=== PATIENT | female | born 1940 | race Caucasian/White ===

== ENCOUNTER 2016-12-24 21:21 | Emergency (ER) | payer MEDICARE, BC ==
[2016-12-24] MEDS ORDERED: ONDANSETRON HCL/PF 2 MG/ML VIAL IV ONE (22:06)
[2016-12-24] MEDS ORDERED: NORMAL SALINE 1,000 ML IV ONE ×2 (22:06→22:40)
[2016-12-24] MEDS ORDERED: ACETAMINOPHEN 325 MG TABLET PO ONE (22:06)
--- NOTE | 2016-12-24 22:12 | ERNOTE ---
Medical Problem HPI - General Chief Complaint: Nausea/Vomiting Source: patient Exam Limitations: no limitations - Immun/Allergies/Home Medications Immunizations: IMMUNIZATION HX Immunizations Up to Date Yes History of Influenza Vaccine No Hx Pneumococcal Vaccination Yes Allergies/Adverse Reactions: Allergies No Known Allergies Allergy (Verified 12/24/16 22:03) Home Medications: HOME MEDICATIONS Fluticasone/Salmeterol [Advair 250-50 Diskus] 1 each IH BID 11/10/12 [Last Taken 01/25/14] Lisinopril [Zestril] 20 mg PO DAILY 11/10/12 [Last Taken 01/25/14] amLODIPine BESYLATE [Norvasc (Amlodipine)] 5 mg PO DAILY 11/10/12 [Last Taken 20:00] Albuterol Sulfate [Ventolin Hfa] 2 puff IH Q4H PRN 12/06/14 [Last Taken Unknown] - History of Present History Narrative: Here for progressive shortness of breath which became worse today. she also feels nauseated and vomited twice today. Has a history of COPD Review of Systems - Review of Systems Constitutional: Present: no symptoms reported EYE: Present: no symptoms reported ENT: Present: no symptoms reported Respiratory: Present: See HPI Cardiology: Present: no symptoms reported Gastrointestinal/Abdominal: Present: See HPI - Patient's Past Medical History Patient History - Medical: Arthritis, GERD Patient History - Cardiac/Respiratory: Asthma, COPD, Hypertension Patient History - Surgical Procedures: Colonoscopy, Hysterectomy, T & A Patient History - Other: None LMP (females 10-50): Menopausal - Social History Living Situations: home Abuse History: No History of abuse Psych History: No pertinent hx Alcohol Use: none Drug Use: none - Immunizations Immunizations Up to Date: Yes Hx Pneumococcal Vaccination: Yes History of Influenza Vaccine: No Physical Exam - Physical Exam General Appearance: Present: wd/wn, alert, no apparent distress Ears, Nose, Throat: Present: normal ENT inspection, normal pharynx Neck: Present: normal inspection, nontender, supple Respiratory: Present: no respiratory distress, lungs clear - pt does have decreased breath sounds at both bases ED Progress - Results and Orders Patient's Lab Results:: I have reviewed the patient's lab results. - Vital Signs Patient's Vital Signs:: I have reviewed the patient's vital signs. Vital Signs: Vital Signs 12/24/16 21:59 Temperature 38.1 C H Pulse Rate 92 Respiratory 20 Rate Blood Pressure 169/60 O2 Sat by Pulse 94 Oximetry - X-Ray X-Ray #1 X-Ray: chest - no obvous pneumonia noted. - Progress/Reassessment Chief Complaint: Nausea/Vomiting Plan - Plan Plan: This patient's lactic acid was slightly elevated however no site of infection was found and after IV hydration pt felt great and wanted to go home. Will discharge pt home in stable condition with Dx. of COPD. repeat Lactate is 2.0 and pt is feeling well and wants to go home. Case discussed with midlevel hospitalist Departure - Departure Clinical Impression: COPD (chronic obstructive pulmonary disease) Qualifiers: COPD type: unspecified COPD Qualified Code(s): J44.9 - Chronic obstructive pulmonary disease, unspecified Disposition: Home self-care Condition: Good Instructions: Chronic Obstructive Pulmonary Disease Exacerbation, [id number] Referrals: Navjot Bryant MD [Primary Care Provider] -
[2016-12-24] MEDS ORDERED: ACETAMINOPHEN 325 MG TABLET ONE (22:17)
[2016-12-24] MEDS ORDERED: ONDANSETRON HCL/PF 2 MG/ML VIAL ONE (22:17)
[2016-12-24 22:19] LABS: Hematocrit 42.2 % (37.0-47.0); Hemoglobin 14.2 gm/dL (12.5-16.0); Mean Cell Volume 86.8 fl (78-100); Mean Corpuscular Hemoglobin 29.2 pg (27-31); Mean Corpuscular Hgb Conc 33.6 g/dl (32-36); Mean Platelet Volume 10.2 fl (6.0-9.5); Neutrophil # 9.4 K/mm3 (1.3-6.0); Neutrophil % 87.1 % (42-75.0); Platelet Count 164 K/mm3 (150-450); Red Blood Count 4.86 M/mm3 (4.2-5.4); Red Cell Distribution Width 13.7 % (11.5-14.0); White Blood Count 10.8 K/mm3 (4.0-10.5)
--- OUTSIDE RECORDS SUMMARY | 2016-12-24 22:33 | XMS REPORT | Continuity of Care Document ---
:1940 Author Organization [facility] ([facility]) Address [address] [place] [address] Phone [phone] Care Team Providers Name Role Phone Unavailable Primary Care Provider Unavailable Source Comments This disclosure is being made pursuant to the Care Everywhere program, applicable federal and state laws, and may not contain all informaitonavailable regarding this patient.[facility] ([facility]) Active Allergies and Adverse Reactions Not on File Current Medications Not on file Active Problems Not on file Social History Tobacco Use Types Packs/Day Years Used Date Never Assessed Plan of Care Health Maintenance Due Date Last Done Comments Hepatitis B Vaccine (1 of 3 - Primary Series) 1940 Tdap Vaccine 1951 Lipid Disorder Screening 1958 Td Vaccine 1958 Mammogram 1980 Colonoscopy 1990 Zoster Vaccine 2000 Osteoporosis Screening (DXA Bone Density) 2005 Pneumococcal Vaccine (1 of 2 - PCV13) 2005 Influenza Vaccine: Seasonal (#1) 03/12/2016 Results from Last 3 Months Not on file
[2016-12-24 22:42] LABS: Albumin * 3.7 gm/dl (3.4-5.0); Anion Gap 11.5 mmol/L (6.8-13.8); BUN/Creatinine Ratio 22.2 (9.0-21.6); Bilirubin, Total 0.6 mg/dL (0.0-1.1); Ca. Corrected For Albumin 8.6 mg/dL (8.4-10.2); Calcium * 8.7 mg/dL (7.9-10.9); Carbon Dioxide 32.3 mmol/L (24-32.6); Potassium 3.8 mmol/L (3.4-4.6); Total Protein 6.7 gm/dL (6.2-8.2)
[2016-12-24] MEDS: NORMAL SALINE 1,000 ML IV PRN ×2 (22:59→23:36)
[2016-12-24 23:29] LABS: Urine Appearance Clear; Urine Bacteria TRACE; Urine Bilirubin Negative (NEGATIVE); Urine Blood Negative /ul (NEGATIVE); Urine Color Pale Yellow; Urine Ketone Negative (NEGATIVE); Urine Nitrite Negative (NEGATIVE); Urine Protein Negative (NEGATIVE); Urine RBC None Seen /hpf (0-5); Urine Specific Gravity 1.015 SP.GR. (1.005-1.010); Urine Urobilinogen Normal (NORMAL); Urine WBC None Seen /hpf (0-5)
[2016-12-25] MEDS ORDERED: ALBUTEROL SULFATE/IPRATROPIUM 3 ML NEBU IH ONE ×2 (00:20→00:26)
[2016-12-25 03:42] VITALS: BP 112/48
== END 2016-12-25 03:27 | disposition home or self-care (01) ==
LOC: ER 21:21
DX: J44.9 Chronic obstructive pulmonary disease, unspecified (principal); I10 Essential (primary) hypertension

== ENCOUNTER 2017-03-31 20:59 | Observation (INO) | payer MEDICARE, BC ==
[2017-03-31] MEDS ORDERED: ONDANSETRON HCL/PF 2 MG/ML VIAL IV ONE (21:35)
[2017-03-31] MEDS ORDERED: ASPIRIN 81 MG TAB.CHEW PO ONE (21:35)
--- NOTE | 2017-03-31 21:39 | ERNOTE ---
Medical Problem HPI - Narrative Date of Service: 03/31/17 - General Chief Complaint: Nausea/Vomiting Time Seen by Provider: 03/31/17 21:25 Source: patient - Immun/Allergies/Home Medications Immunizations: IMMUNIZATION HX Immunizations Up to Date Yes History of Influenza Vaccine No Hx Pneumococcal Vaccination Yes Allergies/Adverse Reactions: Allergies No Known Allergies Allergy (Verified 03/31/17 21:28) Home Medications: HOME MEDICATIONS Fluticasone/Salmeterol [Advair 250-50 Diskus] 1 each IH BID 11/10/12 [Last Taken 01/25/14] Lisinopril [Zestril] 20 mg PO DAILY 11/10/12 [Last Taken 01/25/14] amLODIPine BESYLATE [Norvasc (Amlodipine)] 5 mg PO DAILY 11/10/12 [Last Taken 20:00] Albuterol Sulfate [Ventolin Hfa] 2 puff IH Q4H PRN 12/06/14 [Last Taken Unknown] - History of Present History Narrative: This is a 76-year-old female who comes to the emergency department complaining of chest/abdominal fullness, nausea, vomiting, diarrhea. The patient has a history of COPD. She denies significant history of cardiac disease. She comes in saying that she ate a baked potato for dinner this evening. She says it made her feel much full her that should normally have done. He says that she sat there she felt even rosario. She thought she was going to be sick so she went into the bathroom. When she got in the bathroom she actually had diarrhea. It was nonbloody watery diarrhea. She continued to feel nauseated. She decided to come to the hospital. When she got here she initially didn't throw up. She also had another episode of diarrhea. She has also noted that she is becoming profoundly dyspneic with even mild exertion while she's here. The patient says that her discomfort in her chest/abdomen is really in the epigastric area. She says it feels full. He feels better after vomiting. She has no diaphoresis. No leg swelling. No radiation down her arms or into her neck or jaw. No radiation to the back. She has never had similar symptoms in the past. No recent sick contacts. Review of Systems - Review of Systems Constitutional: Present: no symptoms reported EYE: Present: no symptoms reported ENT: Present: no symptoms reported Respiratory: Present: shortness of breath Cardiology: Present: no symptoms reported Gastrointestinal/Abdominal: Present: nausea, vomiting, diarrhea Genitourinary: Present: no symptoms reported Musculoskeletal: Present: no symptoms reported Skin: Present: no symptoms reported Neurological: Present: no symptoms reported Endocrine: Present: no symptoms reported Hematologic/Lymphatic: Present: no symptoms reported Psych: Present: no symptoms reported All Other Systems: All systems neg except as marked - Patient's Past Medical History Patient History - Medical: Arthritis, GERD Patient History - Cardiac/Respiratory: Asthma, COPD, Hypertension Patient History - Cancer: No Hx of Cancer Patient History - Surgical Procedures: Colonoscopy, Hysterectomy, T & A Patient History - Other: None LMP (females 10-50): post - Social History Living Situations: home Abuse History: No History of abuse Psych History: No pertinent hx Smoking Status: Former smoker Alcohol Use: occasionally Drug Use: none - Immunizations Immunizations Up to Date: Yes Hx Pneumococcal Vaccination: Yes History of Influenza Vaccine: No Physical Exam - Physical Exam General Appearance: Present: wd/wn, alert, other - well-developed well- nourished pleasant woman sitting in bed. She does get profoundly dyspneic after speaking with me even for a short period of time. Head Exam: Present: normal inspection, no evidence of injury Eye Exam: Normal inspection: bilateral, PERRL: bilateral, EOMI: bilateral Ears, Nose, Throat: Present: normal ENT inspection, normal pharynx Neck: Present: normal inspection, nontender Respiratory: Present: no respiratory distress, no accessory muscle use, chest nontender, lungs clear Cardiovascular/Chest: Present: regular rate, rhythm, no murmur, normal peripheral pulses Gastrointestinal/Abdominal: Present: normal bowel sounds, nontender, nondistended, soft, other - normal bowel sounds. No definite masses. No rebound or guarding. Rectal exam is deferred. Back Exam: Present: normal inspection, normal range of motion, no CVA tenderness Extremity Exam: Present: normal inspection, non-tender, normal range of motion Neurological Exam: Present: oriented, normal mood/affect, no motor/sensory deficits Skin Exam: Present: normal color, warm/dry Lymphatic Exam: Present: no adenopathy ED Progress - Results and Orders Patient's Lab Results:: I have reviewed the patient's lab results. - Vital Signs Patient's Vital Signs:: I have reviewed the patient's vital signs. Vital Signs: Vital Signs 03/31/17 21:10 Temperature 37.1 C Pulse Rate 16 L Respiratory 18 Rate Blood Pressure 161/125 O2 Sat by Pulse 90 Oximetry - EKG EKG: NSR, other EKG read: Interp. by me EKG Comments: Normal sinus rhythm at 96 normal axis normal intervals some artifact makes comprehensive evaluation of fine details difficult. No definite ST segment elevation however possible ST segment depression in V4 5 and 6. - CT/Ultrasound CT/Ultrasound Narrative: CAT scan of the chest for PE does not demonstrated acute pulmonary embolism. There is thickening of interim lobar septa scattered groundglass opacities consistent with mild pulmonary edema. - Progress/Reassessment Chief Complaint: Nausea/Vomiting Progress:: Improved Progress Note-Subjective: 04/01/17 01:23 The patient has no further nausea or vomiting. She is still having the significant dyspnea on exertion which has been quite concerned however. 04/01/17 01:44 The patient had an arterial blood gas performed which demonstrates a pH of 7.406 PCO2 of 28 with a PaO2 of 57 this is on room air. This is significant hypoxia. She is left on room air in the room for several minutes. Her saturation is between 86 and 90%. Any exertion or extended talking will cause this to drop I cannot in good conscience allow a 76-year-old with no history of oxygen requiring COPD to go home when she is so profoundly hypoxic. I discussed the case with Dr. coronado and she has graciously agreed to accept the patient. I will give a dose of corticosteroids as well as antibiotic, a quinolone antibiotic, which have been shown to decrease the rate of 3 hospitalization in people with COPD requiring hospitalization. Departure - Departure Clinical Impression: COPD (chronic obstructive pulmonary disease) Disposition: [facility] Condition: Stable Referrals: Navjot Bryant MD [Primary Care Provider] - - Critical Care Total Time (mins): 30
[2017-03-31] MEDS ORDERED: ASPIRIN 81 MG TAB.CHEW ONE (21:51)
[2017-03-31] MEDS ORDERED: ONDANSETRON HCL/PF 2 MG/ML VIAL ONE (21:51)
[2017-03-31 21:52] LABS: Hematocrit 47.2 % (37.0-47.0); Hemoglobin 15.8 gm/dL (12.5-16.0); Mean Cell Volume 88.1 fl (78-100); Mean Corpuscular Hemoglobin 29.5 pg (27-31); Mean Corpuscular Hgb Conc 33.5 g/dl (32-36); Mean Platelet Volume 10.3 fl (6.0-9.5); Neutrophil # 9.1 K/mm3 (1.3-6.0); Neutrophil % 88.8 % (42-75.0); Platelet Count 190 K/mm3 (150-450); Red Blood Count 5.36 M/mm3 (4.2-5.4); Red Cell Distribution Width 13.8 % (11.5-14.0); White Blood Count 10.3 K/mm3 (4.0-10.5)
[2017-03-31 22:12] LABS: ALT 26 U/L (19-67); AST 15 U/L (0-48); Albumin * 3.8 gm/dl (3.4-5.0); Alkaline Phosphatase * 78 U/L (50-170); Anion Gap 14.4 mmol/L (6.8-13.8); BNP * 75 pg/mL (5-550); BUN/Creatinine Ratio 24.6 (9.0-21.6); Bilirubin, Total 0.5 mg/dL (0.0-1.1); Blood Urea Nitrogen 17 mg/dL (3-23); Ca. Corrected For Albumin 8.6 mg/dL (8.4-10.2); Calcium * 8.8 mg/dL (7.9-10.9); Carbon Dioxide 28.3 mmol/L (24-32.6); Chloride 106 mmol/L (97-106); Glucose * 131 mg/dL (70-110); Potassium 3.7 mmol/L (3.4-4.6); Sodium 145 mmol/L (132-142); Total Protein 6.8 gm/dL (6.2-8.2); Troponin I Less than 0.017 ng/ml (0.00-0.10)
[2017-04-01] MEDS ORDERED: NORMAL SALINE 1,000 ML IV ONE (00:13)
[2017-04-01 00:47] LABS: Urine Bilirubin Negative (NEGATIVE); Urine Blood Negative /ul (NEGATIVE); Urine Ketone Negative (NEGATIVE); Urine Nitrite Negative (NEGATIVE); Urine Protein Negative (NEGATIVE); Urine Specific Gravity 1.015 SP.GR. (1.005-1.010); Urine Urobilinogen Normal (NORMAL)
[2017-04-01 00:48] LABS: Urine Appearance Clear; Urine Bacteria TRACE; Urine Color Yellow; Urine RBC None Seen /hpf (0-5); Urine WBC None Seen /hpf (0-5)
[2017-04-01] MEDS ORDERED: ALBUTEROL SULFATE/IPRATROPIUM 3 ML NEBU IH ONE (01:11)
[2017-04-01] MEDS ORDERED: METHYLPREDNISOLONE SOD SUCC/PF 125 MG/2 ML VIAL IV ONE (01:41)
[2017-04-01] MEDS ORDERED: METHYLPREDNISOLONE SOD SUCC/PF 125 MG/2 ML VIAL ONE (01:45)
[2017-04-01] MEDS ORDERED: LEVOFLOXACIN/D5W 500 MG/100 ML BAG IV SCH (01:45)
[2017-04-01] MEDS ORDERED: LEVOFLOXACIN 500 MG TABLET PO ONE (01:46)
[2017-04-01] MEDS ORDERED: LEVOFLOXACIN 500 MG TABLET ONE (01:47)
[2017-04-01] MEDS ORDERED: ALBUTEROL SULFATE/IPRATROPIUM 3 ML NEBU IH PRN (02:35)
[2017-04-01] MEDS ORDERED: BUDESONIDE 0.5 MG/2 ML VIAL.NEB IH SCH ×2 (02:45→07:00)
[2017-04-01] MEDS ORDERED: ALBUTEROL SULFATE 200 PUFF INHALER IH PRN (03:12)
[2017-04-01] MEDS: PANTOPRAZOLE SODIUM 40 MG TABLET.EC PO SCH ×2 (04:13→07:23)
--- NOTE | 2017-04-01 04:45 | HP ---
Chief Complaint - Chief Complaint Date of Service: 04/01/17 Time of Service: 03:03 Chief Complaint: Shortness of breath, nausea History of Present Illness: 76 years old female adm to the hospital from ER with reports of shortness of breath, nausea and vomiting that began today after mowing her grass. Pt stated she was at home and was just not feeling well. If she walked a short distant she would get short of breath. Per relative she had similar s/s a few months ago and was seen in the ER. While in ER Spo2 86% while at rest on RA, she was given neb treatment, IV steroids and s/s improved. PMH significant for COPD, hypertension and obesity. Plan to adm for COPD exacerbation. Plan of care discussed with pt and family they verbalized understanding and agrees. - Patient's Past Medical History Patient History - Medical: Arthritis, GERD Patient History - Cardiac/Respiratory: Asthma, COPD, Hypertension Patient History - Cancer: No Hx of Cancer Patient History - Surgical Procedures: Colonoscopy, Hysterectomy, T & A Patient History - Other: None LMP (females 10-50): post - Social History Living Situations: alone Abuse History: No History of abuse Psych History: No pertinent hx Does anyone smoke in the home?: No Smoking Status: Former smoker Have you smoked in the past 12 months: No Do you dip or chew tobacco: No Alcohol Use: occasionally Drug Use: none - Immunizations Immunizations Up to Date: Yes Hx Pneumococcal Vaccination: Yes History of Influenza Vaccine: No Review Of Systems (GEN) - Review of Systems Generalized/Overall Review: Present: No Symptoms Reported EENTM: Present: No Symptoms Reported Respiratory: Present: Cough, Shortness of Breath Cardiac: Present: No Symptoms Reported Abdominal: Present: Nausea Genitourinary: Present: No Symptoms Reported Musculoskeletal: Present: No Symptoms Reported Neurological: Present: No Symptoms Reported Skin: Present: No Symptoms Reported Endocrine: Present: No Symptoms Reported Allergies/Adverse Reactions: Allergies Allergy/AdvReac Type Severity Reaction Status Date / Time No Known Allergies Allergy Verified 03/31/17 21:28 Home Medications: HOME MEDICATIONS Fluticasone/Salmeterol [Advair 250-50 Diskus] 1 each IH BID 11/10/12 [Last Taken 03/31/17 08:00] Lisinopril [Zestril] 20 mg PO DAILY 11/10/12 [Last Taken 03/31/17 08:00] amLODIPine BESYLATE [Norvasc (Amlodipine)] 5 mg PO DAILY 11/10/12 [Last Taken 08:00] Albuterol Sulfate [Ventolin Hfa] 2 puff IH Q4H PRN 12/06/14 [Last Taken Unknown] Exam - Exam Vital Signs: Vital Signs - Last Taken Temp 36.7 C 04/01/17 02:23 Pulse 109 H 04/01/17 02:23 Resp 20 04/01/17 02:23 BP 139/72 04/01/17 02:23 Pulse Ox 92 04/01/17 02:23 Constitutional: Present: Alert, Oriented x3, Cooperative, Well developed, No distress, Middle aged ENT Exam: Present: normal ENT inspection Eye Exam: bilateral eye: normal inspection Neck: Present: full range of motion Back Exam: Present: normal inspection Breasts: Present: Exam deferred Respiratory: Present: chest non-tender, wheezing Cardiovascular/Chest: Present: normal peripheral pulses, no chest tenderness, tachycardia Peripheral Pulses: dorsalis-pedis (R): 3+, dorsalis-pedis (L): 3+ Abdomen: Present: Normal bowel sounds, soft, nontender, nondistended /Rectal: Present: Exam deferred Extremity: Present: normal range of motion, leg pain Skin Exam: Present: normal color, warm/dry, no cyanosis Neurologic: Present: alert, normal mood/affect, oriented x 3 Appearance: Present: appropriate appearance Eye contact: Present: cooperative, good eye contact Thoughts: Present: normal thought pattern Diagnostic Studies: Laboratory Results WBC 10.3 K/mm3 (4.0-10.5) 03/31/17 21:45 RBC 5.36 M/mm3 (4.2-5.4) 03/31/17 21:45 Hgb 15.8 gm/dL (12.5-16.0) 03/31/17 21:45 Hct 47.2 % (37.0-47.0) H 03/31/17 21:45 MCV 88.1 fl (78-100) 03/31/17 21:45 MCH 29.5 pg (27-31) 03/31/17 21:45 MCHC 33.5 g/dl (32-36) 03/31/17 21:45 RDW 13.8 % (11.5-14.0) 03/31/17 21:45 Plt Count 190 K/mm3 (150-450) 03/31/17 21:45 MPV 10.3 fl (6.0-9.5) H 03/31/17 21:45 Immature Gran % (Auto) 0.30 % (0.001-0.429) 03/31/17 21:45 Immature Gran # (Auto) 0.03 K/mm3 (0.000-0.0310) 03/31/17 21:45 Neutrophils % 88.8 % (42-75.0) H 03/31/17 21:45 Lymphocytes % 9.9 % (20-51) L 03/31/17 21:45 Monocytes % 0.3 % (0.0-9) 03/31/17 21:45 Eosinophils % 0.5 % (0.0-3.0) 03/31/17 21:45 Basophils % 0.2 % (0.0-1.0) 03/31/17 21:45 Nucleated RBC % 0.0 k/mm3 (0-1) 03/31/17 21:45 Neutrophils # 9.1 K/mm3 (1.3-6.0) H 03/31/17 21:45 Lymphocytes # 1.0 k/mm3 (1.5-3.5) L 03/31/17 21:45 Monocytes # 0.0 k/mm3 (0.0-1.0) 03/31/17 21:45 Eosinophils # 0.1 k/mm3 (0.0-0.7) 03/31/17 21:45 Absolute Basophils 0.0 k/mm3 (0.0-0.1) 03/31/17 21:45 D-Dimer 0.91 mg/L (0.19-0.49) H 03/31/17 21:45 pCO2 36.7 mmHg (32.0-45.0) 04/01/17 01:25 pO2 52.0 mmHg (83.0-108.0) L 04/01/17 01:25 HCO3 22.7 mmol/L (21.0-28.0) 04/01/17 01:25 Total CO2 23.8 mmol/L (19.0-24.0) 04/01/17 01:25 Base Excess -1.5 mmol/L (-2.0-3.0) 04/01/17 01:25 ABG pH 7.41 (7.35-7.45) 04/01/17 01:25 ABG O2 Sat (Measured) 87.4 % (94.0-98.0) L 04/01/17 01:25 Sodium 145 mmol/L (132-142) H 03/31/17 21:45 Plasma Sodium 145 mmol/L (130-142) H 03/31/17 21:45 Potassium 3.7 mmol/L (3.4-4.6) 03/31/17 21:45 Chloride 106 mmol/L (97-106) 03/31/17 21:45 Carbon Dioxide 28.3 mmol/L (24-32.6) 03/31/17 21:45 Anion Gap 14.4 mmol/L (6.8-13.8) H 03/31/17 21:45 BUN 17 mg/dL (3-23) 03/31/17 21:45 Creatinine 0.69 mg/dL (0.4-1.4) 03/31/17 21:45 Est GFR (Non-Af Amer) 88 mL/min (60-130) 03/31/17 21:45 BUN/Creatinine Ratio 24.6 (9.0-21.6) H 03/31/17 21:45 Random Glucose 131 mg/dL (70-110) H 03/31/17 21:45 Calcium 8.8 mg/dL (7.9-10.9) 03/31/17 21:45 Calcium Adj for Albumin 8.6 mg/dL (8.4-10.2) 03/31/17 21:45 Total Bilirubin 0.5 mg/dL (0.0-1.1) 03/31/17 21:45 AST 15 U/L (0-48) 03/31/17 21:45 ALT 26 U/L (19-67) 03/31/17 21:45 Alkaline Phosphatase 78 U/L (50-170) 03/31/17 21:45 Troponin I Less than 0.017 ng/ml (0.00-0.10) 03/31/17 23:45 B-Natriuretic Peptide 75 pg/mL (5-550) 03/31/17 21:45 Total Protein 6.8 gm/dL (6.2-8.2) 03/31/17 21:45 Albumin 3.8 gm/dl (3.4-5.0) 03/31/17 21:45 Urine Color Yellow 04/01/17 00:30 Urine Appearance Clear 04/01/17 00:30 Urine pH 6.0 pH (5.0-7.0) 04/01/17 00:30 Ur Specific [place] 1.015 SP.GR. (1.005-1.010) 04/01/17 00:30 Urine Protein Negative mg/dL (NEGATIVE) 04/01/17 00:30 Urine Glucose (UA) Negative mg/dL (NEGATIVE) 04/01/17 00:30 Urine Ketones Negative mg/dL (NEGATIVE) 04/01/17 00:30 Urine Blood Negative /ul (NEGATIVE) 04/01/17 00:30 Urine Nitrate Negative (NEGATIVE) 04/01/17 00:30 Urine Bilirubin Negative mg/dl (NEGATIVE) 04/01/17 00:30 Urine Urobilinogen Normal EU/dl (NORMAL) 04/01/17 00:30 Ur Leukocyte Esterase Negative /ul (NEGATIVE) 04/01/17 00:30 Urine RBC None seen /hpf (0-5) 04/01/17 00:30 Urine WBC None seen /hpf (0-5) 04/01/17 00:30 Ur Epithelial Cells 0-5 /hpf (0-5) 04/01/17 00:30 Urine Bacteria Trace (NONE) 04/01/17 00:30 Urine Culture Comments No culture indicated 04/01/17 00:30 CXR: No acute cardiopulmonary abnormality Assessment/Plan - Narrative Narrative: COPD exacerbation likely due to mowing grass Neb treatment, supplemented oxygen and encourage use of I/S Levaquin and solumedrol given in ER CXR; No acute cardiopulmonary process R/O PE: CTA chest pending Hypertension- stable Resume home medication Monitor VS Q shift and as indicated GERD- Stable Protonix DVT ppx: ambulate GI ppx: Protonix Code status: Full code Time 35 minutes - Assessment/Plan (1) COPD (chronic obstructive pulmonary disease) Problem: Acute (2) Hypertension Problem: Chronic Qualifiers: Hypertension type: essential hypertension Qualified Code(s): I10 - Essential (primary) hypertension (3) GERD (gastroesophageal reflux disease) Problem: Chronic
[2017-04-01 06:07] LABS: Anion Gap 12.6 mmol/L (6.8-13.8); Carbon Dioxide 25.3 mmol/L (24-32.6); Estimated Creat Clear 56.7; Potassium 3.9 mmol/L (3.4-4.6)
[2017-04-01] MEDS ORDERED: ALBUTEROL SULFATE 2.5 MG/3 ML VIAL.NEB IH PRN (06:30)
[2017-04-01] MEDS ORDERED: FLUTICASONE/SALMETEROL 14 PUFF DISK.W.DEV IH SCH (07:00)
[2017-04-01] MEDS ORDERED: METHYLPREDNISOLONE SOD SUCC 60 MG in WATER FOR INJ.,BACTERIOSTATIC 0 ML IV SCH ×2 (07:00→08:00)
[2017-04-01] MEDS ORDERED: METHYLPREDNISOLONE SOD SUCC/PF 125 MG/2 ML VIAL IV SCH (08:00)
[2017-04-01] MEDS ORDERED: amLODIPine BESYLATE 5 MG TABLET PO SCH (09:00)
[2017-04-01] MEDS ORDERED: LISINOPRIL 20 MG TABLET PO SCH (09:00)
[2017-04-01 10:57] VITALS: BP 115/56
[2017-04-01] MEDS ORDERED: predniSONE 20 MG TABLET PO ONE (12:31)
--- NOTE | 2017-04-01 12:32 | DS ---
(1) COPD exacerbation Problem: Acute (2) Obesity Diagnosis(s): BMI-31.0 Problem: Chronic Qualifiers: Obesity type: due to excess calories Obesity classification: unspecified obesity classification Description of Stay: DATE OF ADMISSION: 04/01/17. DATE OF DISCHARGE: 04/01/17. DIAGNOSTICS: CTA : 04/01/17. DISCHARGE SUMMARY: Joana Hernandez is a 76-year-old WF with a H/O HTN, COPD who came in to the ER for evaluation of sob, difficulty in breathing, N,V,D which started later in the evening. She had mowed 2 acres of lawn on a ride on lawnmower and had a baked potato for supper prior to this. She had sats of 86% on RA, d-dimer 0.91. ABG's RA: PH 7.41, PCO2 36.7, PO2 52, sat 87.7%. Troponin, EKG, CBC and CMP were unremarkable. BNP 75. Patient underwent a CXR: Centrilobular emphysema at the bases, chronic scarring , diffuse hyperinflation with flattening of the diaphragm, calcific granulomas, DJD of the spine and shoulders. No acute cardiopulmonary abnormality identified. She underwent a CTA on 04/01/2017: Which showed no evidence of PE, small bilateral pleural effusions and edematous changes to the lung parenchyma, chronic granulomatous changes, foci of groundglass attenuation in the bilateral lower lobes which is likely atelectasis however Navjot evolving infection could not be ruled out. Some fatty infiltration of liver present RT renal cyst present. Minimal nodular contour to the liver which can be seen in cirrhosis. Patient was treated with Solu-Medrol 125 mg IV, nebulizer treatments IH and levofloxacin 500 mg IV with improvement in symptoms. Patient was ambulated, sats remained at 91-92% RA. Patient is being discharged in a stable condition. More than 30 min spent in counseling, discussing treatment options, prognosis, preparing discharge papers, dictating discharge summary. Procedures Performed: none Results and Findings: Laboratory Tests 03/31/17 21:45 WBC 10.3 Hgb 15.8 Hct 47.2 H Plt Count 190 03/31/17 04/01/17 21:45 05:40 Plasma Sodium 145 H 143 H Potassium 3.7 3.9 Chloride 106 108 H Carbon Dioxide 28.3 25.3 BUN 17 15 Creatinine 0.69 0.79 Est GFR (Non-Af Amer) 88 75 Random Glucose 131 H 176 H D Calcium Adj for Albumin 8.6 Total Bilirubin 0.5 AST 15 ALT 26 Alkaline Phosphatase 78 Total Protein 6.8 Albumin 3.8 Laboratory Tests 03/31/17 03/31/17 21:45 23:45 D-Dimer 0.91 H Troponin I < 0.017 < 0.017 B-Natriuretic Peptide 75 Discharge Disposition: Home self care Disposition: Home self-care Condition: Stable Discharge Activity: Activity as tolerated Discharge Diet: Low salt, Low fat/chol, High Fiber Referrals: Navjot Bryant MD [Primary Care Provider] - Problem Oriented Discharge Instructions to Patient/Family: Hypoxemia Additional Patient Instructions (free text): NEW/CHANGED MEDICATIONS: Vitamin D3 2000 units daily with food [OTC medication for bones etc.] [Cheaper in a bottle of 100]. Amlodipine 5 mg has been changed to bedtime. please follow low salt diet. Appointment with PCP in 10-14 days Prescriptions (Any new or edited meds): amLODIPine BESYLATE [Norvasc] 5 mg PO DAILY@2100 #0.1 tablet Cholecalciferol (Vitamin D3) [Vitamin D] 2,000 unit PO DAILY #100 capsule predniSONE [Deltasone] 20 mg PO DAILY #6 tablet Complete Home Medications List: Complete Home Medication List: Fluticasone/Salmeterol [Advair 250-50 Diskus] 1 each IH BID 11/10/12 Lisinopril [Zestril] 20 mg PO DAILY 11/10/12 Albuterol Sulfate [Ventolin Hfa] 2 puff IH Q4H PRN 12/06/14 Cholecalciferol (Vitamin D3) [Vitamin D] 2,000 unit PO DAILY #100 capsule amLODIPine BESYLATE [Norvasc] 5 mg PO DAILY@2100 #0.1 tablet 04/01/17 predniSONE [Deltasone] 20 mg PO DAILY #6 tablet 04/01/17
[2017-04-02] MEDS ORDERED: LEVOFLOXACIN/D5W 500 MG/100 ML BAG IV SCH
== END 2017-04-01 15:38 | disposition home or self-care (01) ==
LOC: ER 20:59 → MS 04-01 01:52 → INTOOBSV 04-01 01:52
PROVIDERS: ADMIT Nurse Practitioner; ATTEND Family Medicine
PROC: 4A033R1 Measurement of Arterial Saturation, Peripheral, Percutaneous Approach (ICD-10-PCS; principal; 2017-03-31)
DX: J44.1 Chronic obstructive pulmonary disease with (acute) exacerbation (principal); J45.901 Unspecified asthma with (acute) exacerbation; Z87.891 Personal history of nicotine dependence; E66.9 Obesity, unspecified; Z68.31 Body mass index [BMI] 31.0-31.9, adult; K21.9 Gastro-esophageal reflux disease without esophagitis; I10 Essential (primary) hypertension
CPT/HCPCS: 36415; 36600; 71020; 71275; 80048; 80053; 81001; 82803; 83880; 84484; 85025; 85379; 93005; 96374; 96375; 99291; G0378; J2405

== ENCOUNTER 2018-11-06 08:15 | Observation (INO) ==
[2018-11-06] MEDS ORDERED: ALBUTEROL SULFATE 2.5 MG/0.5 ML VIAL.NEB IH ONE (08:40)
[2018-11-06] MEDS ORDERED: ACETAMINOPHEN 325 MG TABLET PO ONE (08:40)
[2018-11-06 08:46] LABS: Hematocrit 42.1 % (37.0-47.0); Hemoglobin 13.9 gm/dL (12.5-16.0); Mean Cell Volume 88.6 fl (78-100); Mean Corpuscular Hemoglobin 29.3 pg (27-31); Mean Platelet Volume 10.7 fl (8-12.5); Neutrophil # 8.5 K/mm3 (1.3-6.0); Neutrophil % 78.2 % (42-75.0); Platelet Count 156 K/mm3 (150-450); Red Blood Count 4.75 M/mm3 (4.2-5.4); Red Cell Distribution Width 13.2 % (11.5-14.0); White Blood Count 10.8 K/mm3 (4.0-10.5)
--- NOTE | 2018-11-06 08:46 | ERNOTE ---
Dyspnea - General Presenting Symptoms: shortness of breath Time Seen by Provider: 11/06/18 08:34 Source: patient Exam Limitations: no limitations - Immun/Allergies/Home Medications Immunizations: IMMUNIZATION HX Immunizations Up to Date Yes History of Influenza Vaccine No Hx Pneumococcal Vaccination No Allergies/Adverse Reactions: Allergies ranitidine [From Zantac] Allergy (Verified 11/06/18 08:31) Itching Home Medications: HOME MEDICATIONS Albuterol Sulfate [Ventolin Hfa] 2 puff IH Q4H PRN 12/06/14 [Last Taken Unknown] Polyethylene Glycol 3350 See Rx Instructions PO PRN 03/15/18 [Last Taken Unknown] amlodipine 5 mg tablet 5 mg PO DAILY #90 tab 06/09/18 [Last Taken Unknown] fluticasone 250 mcg-salmeterol 50 mcg/dose blistr powdr for inhalation 1 inh IH BID 06/09/18 [Last Taken Unknown] lisinopril 40 mg tablet 40 mg PO DAILY #90 tab 06/09/18 [Last Taken Unknown] - History of Present Illness Narrative: Patient was seen in the ER four days ago and tested positive for influenza A. She had symptoms for three days at that time and was treated symptomatically. She reports that she is still running a fever and has been increasingly short of breath with exertion, cough is somewhat better, no chest pain. 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 Denies: out of meds Frequency of episodes: Reports: occassional episodes Modifying Factors - (Improves): Reports: rest Modifying Factors (Worsens): Reports: activity Associated Symptoms-Dyspnea: Reports: fever/chills. Denies: chest pain/dis comfort Prior Treatment: Reports: recently seen. Denies: currently on antibiotics Review of Systems - Review of Systems Constitutional: Present: fever, malaise EYE: Absent: vision changes ENT: Absent: nose congestion, sore throat Respiratory: Present: See HPI, shortness of breath, cough Cardiology: Absent: chest pain Gastrointestinal/Abdominal: Absent: nausea, vomiting, abdominal pain Genitourinary: Present: no symptoms reported Musculoskeletal: Absent: back pain Skin: Absent: rash Neurological: Absent: headache Medical History (Last Reviewed 11/06/18 @ 10:45 by Desiree Hackett MD) Essential hypertension (Chronic) Onset Date: Unknown monitor BP at home and bring in a log of BP at her next visit. Hyperlipidemia (Chronic) Onset Date: Unknown GERD (gastroesophageal reflux disease) (Chronic) Onset Date: 12/01/13 COPD (chronic obstructive pulmonary disease) (Chronic) Onset Date: 04/08/17 Asthma (Chronic) Onset Date: Unknown Surgical History: Surgical History (Last Reviewed 11/06/18 @ 10:45 by Desiree Hackett MD) History of foot surgery Onset Date: 03/23/13 History of tonsillectomy Onset Date: Unknown History of total abdominal hysterectomy Onset Date: ~1974 Normal colonoscopy Onset Date: 12/14/14 2006: normal 2014 scattered diverticulosis. Tubular adenoma. Family History: Family History (Last Reviewed 11/06/18 @ 08:32 by Lina Edge RN) Mother , in her 70's Colon cancer Father , 40's Drowned Sister , 74 Colon cancer Other Bipolar disorder Social History: Preferred Language Macedonian Smoking Status Former smoker Abuse History No History of abuse Psych History No pertinent hx Alcohol Use occasionally Drug Use none (Last Updated 07/08/18 @ 12:31 by Felipe Lang DO) No Social History Section defined Physical Exam - Physical Exam General Appearance: Present: wd/wn, alert, no apparent distress Head Exam: Present: normal inspection Eye Exam: Normal inspection: bilateral Ears, Nose, Throat: Present: normal pharynx Respiratory: Present: no respiratory distress, no accessory muscle use, rhonchi - lef lower lung. Absent: respiratory distress Cardiovascular/Chest: Present: regular rate, rhythm, no murmur Gastrointestinal/Abdominal: Present: normal bowel sounds, nontender, soft Extremity Exam: Present: no edema Neurological Exam: Present: alert, oriented, normal mood/affect Skin Exam: Present: normal color, warm/dry Progress - Results and Orders Patient's Lab Results:: I have reviewed the patient's lab results. - Vital Signs Patient's Vital Signs:: I have reviewed the patient's vital signs. Vital Signs: Vital Signs 11/06/18 08:27 11/06/18 08:32 Temperature 38.1 C H Pulse Rate 86 86 Respiratory Rate 19 Blood Pressure 156/87 H O2 Sat by Pulse Oximetry 91 L - EKG EKG #1 EKG: NSR, nonspecific ST T wave changes, unchanged from 03/2017 EKG read: Interp. by me - X-Ray X-Ray #1 X-Ray: chest - New, multifocal opacities, see report Interpretation: Reviewed by me - Progress/Reassessment Chief Complaint: Dyspnea Progress Note-Subjective: 11/06/18 09:58 discussed test result, patient O2sat dipping to 88% at rest, currently 94 % on 1 liter PSI 68 11/06/18 10:[address] Sheffield (Dr Lang out of [facility]) okay to admit for observation for pneumonia and start zithromax and rocephin Departure Clinical Impression: Pneumonia Qualifiers: Pneumonia type: due to unspecified organism Laterality: unspecified laterality Lung location: unspecified part of lung Qualified Code(s): J18.9 - Pneumonia, unspecified organism - Departure Disposition: Still a patient Condition: Stable
[2018-11-06 09:06] LABS: Albumin * 3.3 gm/dl (3.4-5.0); Anion Gap 12.6 mmol/L (6.8-13.8); Bilirubin, Total 1.3 mg/dL (0.0-1.1); Ca. Corrected For Albumin 8.8 mg/dL (8.4-10.2); Calcium * 8.6 mg/dL (7.9-10.9); Carbon Dioxide 27.9 mmol/L (24-32.6); Potassium 3.5 mmol/L (3.4-4.6); Total Protein 6.6 gm/dL (6.2-8.2)
[2018-11-06] MEDS ORDERED: cefTRIAXone SODIUM 1,000 MG/100 ML BAG IV ONE (10:09)
[2018-11-06] MEDS ORDERED: ACETAMINOPHEN 325 MG TABLET PO PRN (10:14)
[2018-11-06] MEDS ORDERED: AZITHROMYCIN 250 MG TABLET PO STA (10:14)
[2018-11-06] MEDS ORDERED: POLYETHYLENE GLYCOL 3350 17 GM PACKET PO PRN (12:33)
[2018-11-06] MEDS ORDERED: ALBUTEROL SULFATE 2.5 MG/0.5 ML VIAL.NEB IH PRN (12:33)
--- NOTE | 2018-11-06 12:37 | HP ---
Chief Complaint - Chief Complaint Date of Service: 11/06/18 Time of Service: 12:13 Chief Complaint: shortness of breath History of Present Illness: Mary Bernard is a 78 year old white female , patient of Dr. Lang, with PMH of COPD. Hypertension, Hyperlipidemia who was admitted on 11/06/2018 with the chief complaint of increasing SOB. 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 Her SOB got worst and 4 days she went to the ED and was found to be positive for Influenza A. She was just treated symptomatically as her symptoms were already 3 days old. She continued to have increasing SOB despite her inhalers ( she has no nebulizers) still associated with fever and so she went to our ED and she was found to have a multifocal infiltrate with leukocytosis. She was then admitted for further evaluation and treatment. Medical History (Last Reviewed 11/06/18 @ 11:15 by Nalini Figueroa RN) Essential hypertension (Chronic) Onset Date: Unknown monitor BP at home and bring in a log of BP at her next visit. Hyperlipidemia (Chronic) Onset Date: Unknown GERD (gastroesophageal reflux disease) (Chronic) Onset Date: 12/01/13 COPD (chronic obstructive pulmonary disease) (Chronic) Onset Date: 04/08/17 Asthma (Chronic) Onset Date: Unknown Surgical History: Surgical History (Last Reviewed 11/06/18 @ 11:15 by Nalini Figueroa RN) History of foot surgery Onset Date: 03/23/13 History of tonsillectomy Onset Date: Unknown History of total abdominal hysterectomy Onset Date: ~1974 Normal colonoscopy Onset Date: 12/14/14 2006: normal 2014 scattered diverticulosis. Tubular adenoma. Family History: Family History (Last Reviewed 11/06/18 @ 11:16 by Nalini Figueroa RN) Mother , in her 70's No problems noted. Father , 40's Drowned Sister , 74 Colon cancer Social History: Patient Lives/Resources Home Utilized Occupation retired Preferred Language Anguillan Do you have any alevism or Yes: Religious cultural preference? Smoking Status Former smoker Have you smoked in the past 12 No months Abuse History No History of abuse Psych History No pertinent hx Alcohol Use occasionally Drug Use none (Last Updated 07/08/18 @ 12:31 by Felipe Sirucek, DO) No Social History Section defined Review Of Systems (GEN) - Review of Systems Generalized/Overall Review: Present: Weakness, Fever. Absent: Chills EENTM: Absent: Blurred Vision Respiratory: Present: Cough, Shortness of Breath, Wheezing Cardiac: Absent: Chest Pain, Edema, Palpitations Abdominal: Absent: Nausea, Vomiting Genitourinary: Absent: Urgency, Frequency Musculoskeletal: Absent: Joint Pain Neurological: Absent: Headache Skin: Absent: Lesions, Rash Endocrine: Absent: Intolerance to Cold, Intolerance to Heat, Excessive Sweating Immunizations: IMMUNIZATION HX Immunizations Up to Date Yes History of Influenza Vaccine No Hx Pneumococcal Vaccination No Allergies/Adverse Reactions: Allergies Allergy/AdvReac Type Severity Reaction Status Date / Time ranitidine [From Zantac] Allergy Itching Verified 11/06/18 11:17 Home Medications: HOME MEDICATIONS Albuterol Sulfate [Ventolin Hfa] 2 puff IH Q4H PRN 12/06/14 [Last Taken Unknown] Polyethylene Glycol 3350 1 tsp PO DAILY PRN 03/15/18 [Last Taken Unknown] amlodipine 5 mg tablet 5 mg PO DAILY #90 tab 06/09/18 [Last Taken Unknown] fluticasone 250 mcg-salmeterol 50 mcg/dose blistr powdr for inhalation 1 inh IH BID 06/09/18 [Last Taken Unknown] lisinopril 40 mg tablet 40 mg PO DAILY #90 tab 06/09/18 [Last Taken Unknown] Exam - Exam Vital Signs: Vital Signs - Last Taken Temp 37.0 C 11/06/18 11:20 Pulse 82 11/06/18 11:20 Resp 18 11/06/18 11:20 BP 134/51 11/06/18 11:20 Pulse Ox 94 11/06/18 11:20 Constitutional: Present: Alert, Oriented x3, Cooperative ENT Exam: Present: hearing grossly normal Eye Exam: bilateral eye: normal inspection, PERRL, EOMI Neck: Present: supple Respiratory: Present: decreased breath sounds, crackles, wheezing Cardiovascular/Chest: Present: regular rate, rhythm, no JVD, no murmur Abdomen: Present: Normal bowel sounds, soft, nontender, nondistended Extremity: Present: no pedal edema, no calf tenderness Diagnostic Studies: Abnormal Lab Results 11/06/18 11/06/18 Range/Units 08:35 08:35 WBC 10.8 H (4.0-10.5) K/mm3 Neutrophils % 78.2 H (42-75.0) % Lymphocytes % 12.5 L (20-51) % Neutrophils # 8.5 H (1.3-6.0) K/mm3 Lymphocytes # 1.35 L (1.5-3.5) k/mm3 Random Glucose 131 H (70-110) mg/dL Total Bilirubin 1.3 H (0.0-1.1) mg/dL ALT 18 L (19-67) U/L Albumin 3.3 L (3.4-5.0) gm/dl Laboratory Results WBC 10.8 K/mm3 (4.0-10.5) H 11/06/18 08:35 RBC 4.75 M/mm3 (4.2-5.4) 11/06/18 08:35 Hgb 13.9 gm/dL (12.5-16.0) 11/06/18 08:35 Hct 42.1 % (37.0-47.0) 11/06/18 08:35 MCV 88.6 fl (78-100) 11/06/18 08:35 MCH 29.3 pg (27-31) 11/06/18 08:35 MCHC 33.0 g/dl (32-36) 11/06/18 08:35 RDW 13.2 % (11.5-14.0) 11/06/18 08:35 Plt Count 156 K/mm3 (150-450) 11/06/18 08:35 MPV 10.7 fl (8-12.5) 11/06/18 08:35 Immature Gran % (Auto) 0.30 % (0.001-0.429) 11/06/18 08:35 Immature Gran # (Auto) 0.03 K/mm3 (0.000-0.0310) 11/06/18 08:35 Neutrophils % 78.2 % (42-75.0) H 11/06/18 08:35 Lymphocytes % 12.5 % (20-51) L 11/06/18 08:35 Monocytes % 6.1 % (0.0-9) 11/06/18 08:35 Eosinophils % 2.7 % (0.0-3.0) 11/06/18 08:35 Basophils % 0.2 % (0.0-1.0) 11/06/18 08:35 Nucleated RBC % 0.0 k/mm3 (0-1) 11/06/18 08:35 Neutrophils # 8.5 K/mm3 (1.3-6.0) H 11/06/18 08:35 Lymphocytes # 1.35 k/mm3 (1.5-3.5) L 11/06/18 08:35 Monocytes # 0.7 k/mm3 (0.0-1.0) 11/06/18 08:35 Eosinophils # 0.3 k/mm3 (0.0-0.7) 11/06/18 08:35 Absolute Basophils 0.0 k/mm3 (0.0-0.1) 11/06/18 08:35 Sodium 139 mmol/L (132-142) 11/06/18 08:35 Plasma Sodium 139 mmol/L (130-142) 11/06/18 08:35 Potassium 3.5 mmol/L (3.4-4.6) 11/06/18 08:35 Chloride 102 mmol/L (97-106) 11/06/18 08:35 Carbon Dioxide 27.9 mmol/L (24-32.6) 11/06/18 08:35 Anion Gap 12.6 mmol/L (6.8-13.8) 11/06/18 08:35 BUN 13 mg/dL (3-23) 11/06/18 08:35 Creatinine 0.62 mg/dL (0.4-1.4) 11/06/18 08:35 Est GFR (Non-Af Amer) 99 mL/min (60-130) 11/06/18 08:35 BUN/Creatinine Ratio 21.0 (9.0-21.6) 11/06/18 08:35 Random Glucose 131 mg/dL (70-110) H 11/06/18 08:35 Lactic Acid, Venous 0.8 mmol/L (0.4-2.0) 11/06/18 08:35 Calcium 8.6 mg/dL (7.9-10.9) 11/06/18 08:35 Calcium Adj for Albumin 8.8 mg/dL (8.4-10.2) 11/06/18 08:35 Total Bilirubin 1.3 mg/dL (0.0-1.1) H 11/06/18 08:35 AST 20 U/L (0-48) 11/06/18 08:35 ALT 18 U/L (19-67) L 11/06/18 08:35 Alkaline Phosphatase 63 U/L (50-170) 11/06/18 08:35 B-Natriuretic Peptide 236 pg/mL (5-550) 11/06/18 08:23 Total Protein 6.6 gm/dL (6.2-8.2) 11/06/18 08:35 Albumin 3.3 gm/dl (3.4-5.0) L 11/06/18 08:35 Assessment/Plan - Narrative Narrative: We will continue with her IV antibiotics and her home medications. - Assessment/Plan (1) Pneumonia Assessment: Viral vs bacterial. Even though more than 48 hours, will also start Tamiflu. continue with Rocephin and Azithromycin. Problem: Acute Qualifiers: Pneumonia type: due to unspecified organism Laterality: unspecified laterality Lung location: unspecified part of lung Qualified Code(s): J18.9 - Pneumonia, unspecified organism (2) Influenza A Problem: Acute (3) Essential hypertension Problem: Chronic (4) Hyperlipidemia Problem: Chronic (5) GERD (gastroesophageal reflux disease) Problem: Chronic (6) COPD (chronic obstructive pulmonary disease) Problem: Chronic
[2018-11-06] MEDS: OSELTAMIVIR PHOSPHATE 75 MG CAPSULE PO SCH ×2 (13:31→20:51)
[2018-11-06] MEDS: ALBUTEROL SULFATE/IPRATROPIUM 3 ML NEBU IH SCH ×3 (14:05→22:20)
[2018-11-07] MEDS: ALBUTEROL SULFATE/IPRATROPIUM 3 ML NEBU IH SCH ×3 (02:29→11:01)
[2018-11-07 05:39] LABS: Hematocrit 37.1 % (37.0-47.0); Mean Cell Volume 90.7 fl (78-100); Mean Corpuscular Hemoglobin 29.3 pg (27-31); Mean Corpuscular Hgb Conc 32.3 g/dl (32-36); Mean Platelet Volume 11.2 fl (8-12.5); Neutrophil # 6.3 K/mm3 (1.3-6.0); Neutrophil % 70.2 % (42-75.0); Platelet Count 142 K/mm3 (150-450); Red Blood Count 4.09 M/mm3 (4.2-5.4); Red Cell Distribution Width 13.3 % (11.5-14.0)
[2018-11-07 05:41] LABS: Anion Gap 11.5 mmol/L (6.8-13.8); BUN/Creatinine Ratio 15.7 (9.0-21.6); Calcium * 8.2 mg/dL (7.9-10.9); Carbon Dioxide 29.8 mmol/L (24-32.6); Potassium 3.3 mmol/L (3.4-4.6)
[2018-11-07] MEDS ORDERED: LISINOPRIL 40 MG TABLET PO SCH (09:00)
[2018-11-07] MEDS ORDERED: amLODIPine BESYLATE 5 MG TABLET PO SCH (09:00)
[2018-11-07] MEDS ORDERED: AZITHROMYCIN 250 MG TABLET PO SCH (09:00)
[2018-11-07] MEDS: OSELTAMIVIR PHOSPHATE 75 MG CAPSULE PO SCH (09:43)
--- NOTE | 2018-11-07 10:51 | DS ---
(1) Pneumonia Problem: Acute Qualifiers: Pneumonia type: due to unspecified organism Laterality: unspecified laterality Lung location: unspecified part of lung Qualified Code(s): J18.9 - Pneumonia, unspecified organism (2) Influenza A Problem: Acute (3) Essential hypertension Problem: Chronic (4) Hyperlipidemia Problem: Chronic (5) GERD (gastroesophageal reflux disease) Problem: Chronic (6) COPD (chronic obstructive pulmonary disease) Problem: Chronic Description of Stay: Mary Bernard is a 78 year old white female , patient of Dr. Lang, with PMH of COPD. Hypertension, Hyperlipidemia who was admitted on 11/06/2018 with the chief complaint of increasing SOB. 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 Her SOB got worst and 4 days she went to the ED and was found to be positive for Influenza A. She was just treated symptomatically as her symptoms were already 3 days old. She continued to have increasing SOB despite her inhalers ( she has no nebulizers) still associated with fever and so she went to our ED and she was found to have a multifocal infiltrate with leukocytosis. She was then admitted for further evaluation and treatment. She was started on breathing treatments and started on IV Rocephin and Azithromycin. Because of her multifocal infiltrates , I also started her on Tamiflu despite of her s/sx being more than 48 hours. She is feeling better and is stable to be discharged and to follow with her PCP on Saturday. Procedures Performed: none Results and Findings: Pending Mircobiology Results 11/06/18 08:50 Blood Blood Culture - Preliminary NO GROWTH 24 HOURS 11/06/18 08:35 Blood Blood Culture - Preliminary NO GROWTH 24 HOURS Lab Pending Results 11/06/18 08:23: B-Natriuretic Peptide 236 11/06/18 08:35: WBC 10.8 H, RBC 4.75, Hgb 13.9, Hct 42.1, MCV 88.6, MCH 29.3, MCHC 33.0, RDW 13.2, Plt Count 156, MPV 10.7, Immature Gran % (Auto) 0.30, Immature Gran # (Auto) 0.03, Neutrophils % 78.2 H, Lymphocytes % 12.5 L, Mon ocytes % 6.1, Eosinophils % 2.7, Basophils % 0.2, Nucleated RBC % 0.0, Neutrophils # 8.5 H, Lymphocytes # 1.35 L, Monocytes # 0.7, Eosinophils # 0.3, Absolute Basophils 0.0 11/06/18 08:35: Sodium 139, Plasma Sodium 139, Potassium 3.5, Chloride 102, Carbon Dioxide 27.9, Anion Gap 12.6, BUN 13, Creatinine 0.62, Est GFR (Non-Af Amer) 99, BUN/Creatinine Ratio 21.0, Random Glucose 131 H, Calcium 8.6, Calcium Adj for Albumin 8.8, Total Bilirubin 1.3 H, AST 20, ALT 18 L, Alkaline Phosphatase 63, Total Protein 6.6, Albumin 3.3 L 11/06/18 08:35: Lactic Acid, Venous 0.8 11/07/18 05:28: WBC 9.0, RBC 4.09 L, Hgb 12.0 L, Hct 37.1, MCV 90.7, MCH 29.3, MCHC 32.3, RDW 13.3, Plt Count 142 L, MPV 11.2, Immature Gran % (Auto) 0.20, Im mature Gran # (Auto) 0.02, Neutrophils % 70.2, Lymphocytes % 16.5 L, Monocytes % 6.7, Eosinophils % 6.2 H, Basophils % 0.2, Nucleated RBC % 0.0, Neutrophils # 6.3 H, Lymphocytes # 1.49 L, Monocytes # 0.6, Eosinophils # 0.6, Absolute Basophils 0.0 11/07/18 05:28: Sodium 138, Plasma Sodium 138, Potassium 3.3 L, Chloride 100, Carbon Dioxide 29.8, Anion Gap 11.5, BUN 11, Creatinine 0.70, Est GFR (Non-Af Amer) 86, BUN/Creatinine Ratio 15.7, Random Glucose 118 H, Calcium 8.2 Discharge Location: Home Disposition: Home self-care Condition: Stable Discharge Activity: Activity as tolerated Discharge Diet: Low salt, Low fat/chol Referrals: Feliep Lang DO [Primary Care Provider] - Additional Patient Instructions (free text): -Please make TCM appointment unless care home discharge. Thank you! Zulema @ [phone]. Follow up with er PCP on Saturday. Prescriptions (Any new or edited meds): Acetaminophen [Tylenol] 650 mg PO Q4H PRN #20 tab PRN Reason: Pain/Fever Albuterol Sulfate/Ipratropium [Duoneb 2.5-0.5MG/3ML Soln] 3 ml INHALATION QID PRN #1 nebu PRN Reason: Shortness Of Breath/Wheezing Levofloxacin [Levaquin] 500 mg PO DAILY #10 tab Oseltamivir Phosphate [Tamiflu] 75 mg PO BID #14 cap Complete Home Medications List: Complete Home Medication List: Albuterol Sulfate [Ventolin Hfa] 2 puff IH Q4H PRN 12/06/14 Polyethylene Glycol 3350 1 tsp PO DAILY PRN 03/15/18 amlodipine 5 mg tablet 5 mg PO DAILY #90 tab 06/09/18 fluticasone 250 mcg-salmeterol 50 mcg/dose blistr powdr for inhalation 1 inh IH BID 06/09/18 lisinopril 40 mg tablet 40 mg PO DAILY #90 tab 06/09/18 Acetaminophen [Tylenol] 650 mg PO Q4H PRN #20 tab 11/07/18 Albuterol Sulfate/Ipratropium [Duoneb 2.5-0.5MG/3ML Soln] 3 ml INHALATION QID PRN #1 nebu 11/07/18 Levofloxacin [Levaquin] 500 mg PO DAILY #10 tab 11/07/18 Oseltamivir Phosphate [Tamiflu] 75 mg PO BID #14 cap 11/07/18
[2018-11-07 12:56] VITALS: BP 148/62
== END 2018-11-07 12:30 | disposition home or self-care (01) ==
LOC: MS 08:15 → ER 08:15 → MS 10:45
PROVIDERS: ADMIT Internal Medicine; ATTEND Family Medicine
CPT/HCPCS: 36415; 71020; 71046; 80048; 80053; 83519; 83605; 83880; 85025; 87040; 93005; 94640; 94664; 94760; 96365; 96366; 99285; G0378

== ENCOUNTER 2021-01-05 03:15 | Inpatient (IN) ==
[2021-01-05] MEDS ORDERED: ALBUTEROL SULFATE/IPRATROPIUM 3 ML NEBU IH ONE ×3 (03:21→04:05)
--- NOTE | 2021-01-05 03:29 | ERNOTE ---
Dyspnea - General Presenting Symptoms: shortness of breath Time Seen by Provider: 01/05/21 03:19 Source: EMS Exam Limitations: clinical condition - Immun/Allergies/Home Medications Immunizations: IMMUNIZATION HX Immunizations Up to Date Yes History of Influenza Vaccine Yes Hx Pneumococcal Vaccination No Allergies/Adverse Reactions: Allergies No Known Drug Allergies Allergy (Verified 01/05/21 03:46) Home Medications: HOME MEDICATIONS Albuterol Sulfate [Ventolin Hfa] 2 puff IH Q4H PRN 12/06/14 [Last Taken Unknown] Polyethylene Glycol 3350 1 tsp PO DAILY PRN 03/15/18 [Last Taken Unknown] fluticasone 250 mcg-salmeterol 50 mcg/dose blistr powdr for inhalation 1 inh IH Q12H #60 ea 07/25/20 [Last Taken Unknown] amlodipine 5 mg tablet 5 mg PO DAILY #90 tab 09/27/20 [Last Taken Unknown] lisinopril 40 mg tablet 40 mg PO DAILY #90 tab 09/27/20 [Last Taken Unknown] - History of Present Illness Narrative: 8-year-old female brought in by EMS with history of shortness of breath starting early evening last evening. She then awoke more short of breath and called EMS. When EMS arrived at her house they found her oxygen saturations in the low 80% range and patient was somewhat cyanotic. They have oxygen 2 L per nasal cannula and started albuterol nebulized treatment. 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 Initiating event: Reports: unknown Frequency of episodes: Reports: occassional episodes Modifying Factors - (Improves): Reports: albuterol, oxygen Modifying Factors (Worsens): Reports: activity Associated Symptoms-Dyspnea: Reports: fever/chills Review of Systems - Review of Systems Constitutional: Present: See HPI, chills ENT: Absent: nose congestion, nasal drainage Respiratory: Present: See HPI Cardiology: Absent: chest pain Gastrointestinal/Abdominal: Present: nausea, vomiting Genitourinary: Absent: frequency, dysuria Musculoskeletal: Absent: back pain, muscle pain Skin: Absent: rash Neurological: Absent: headache, dizziness/light-headedness Endocrine: Absent: excessive sweating Medical History (Last Reviewed 01/05/21 @ 03:28 by Sampson Friend DO) COVID-19 vaccine series completed (Acute) COVID-19 vaccine administered (Acute) Pelvic fullness in female (Acute) Atrophic vaginitis (Acute) Essential hypertension (Chronic) Onset Date: Unknown Hyperlipidemia (Chronic) Onset Date: Unknown GERD (gastroesophageal reflux disease) (Chronic) Onset Date: 12/01/13 COPD (chronic obstructive pulmonary disease) (Chronic) Onset Date: 04/08/17 Asthma (Chronic) Onset Date: Unknown Surgical History: Surgical History (Last Reviewed 01/05/21 @ 03:28 by Sampson Friend DO) History of colonoscopy Onset Date: 12/14/14 02/19/06 Tinguely-normal. 12/14/14 Tinguely-tubular adenoma, scattered diverticulosis. Recheck 5 yrs. History of foot surgery Onset Date: 03/23/13 left ankle fx History of local excision of skin lesion Onset Date: 09/23/14 right anterior upper let-seborrheic keratosis. History of tonsillectomy Onset Date: Unknown History of total abdominal hysterectomy Onset Date: ~1974 Family History: Family History (Last Reviewed 01/05/21 @ 03:28 by Sampson Friend DO) Mother , age 70's-natural causes No problems noted. Father , age 40's Drowned Sister , age 74 Colon cancer dx age 71 Social History: (Last Reviewed 01/05/21 @ 03:28 by Sampson Friend DO) Social History: adopted: No retirement: No Marital status: / lives independently: Yes household members: none current occupational status: retired Highest level of school completed/degree received: high school graduate Sexually Active: No Tobacco: Smoking Status: Former smoker Alcohol: alcohol intake: current alcohol intake frequency: holiday/special occasion Substance Use: substance use type: does not use Dietary Habits: caffeine: Yes caffeine comment: edenilson Type: carbonated beverages Physical Exam - Physical Exam General Appearance: Present: wd/wn, mild distress, lethargic Head Exam: Present: normal inspection, no evidence of injury Eye Exam: Normal inspection: bilateral Neck: Present: normal inspection, nontender, supple Respiratory: Present: no respiratory distress, decreased breath sounds - left, wheezing - fine, right Cardiovascular/Chest: Present: no murmur, tachycardia Gastrointestinal/Abdominal: Present: nontender, nondistended, soft Extremity Exam: Present: normal inspection, normal range of motion, no edema Neurological Exam: Present: no motor/sensory deficits Skin Exam: Present: normal color, warm/dry Lymphatic Exam: Present: no adenopathy Progress - Results and Orders Patient's Lab Results:: I have reviewed the patient's lab results. - Vital Signs Patient's Vital Signs:: I have reviewed the patient's vital signs. - EKG EKG #1 EKG: supraventricular tachycardia - sinus, nonspecific ST T wave changes EKG read: Interp. by me - X-Ray X-Ray #1 X-Ray: chest Interpretation: Reviewed by me X-ray Comments: IMPRESSION: Diffuse interstitial pulmonary edema. Possible small right pleural effusion. Patchy opacities at the right upper lung and right lung base may represent asymmetric pulmonary edema or infection. Electronically signed by Nick Kyle D.O.. - CT/Ultrasound CT/Ultrasound Narrative: CTA chest. 1. Negative for PE. 2. Consolidations within the lungs bilaterally, most severe in the right upper lobe and right middle lobe. 3. Pleural effusions. - Progress/Reassessment Progress:: Improved Progress Note-Subjective: 01/05/21 07:[address] Ford she agrees with admission for pneumonia. Departure Clinical Impression: Pneumonia Qualifiers: Pneumonia type: due to unspecified organism Laterality: bilateral Lung location: unspecified part of lung Qualified Code(s): J18.9 - Pneumonia, unspecified organism - Departure Disposition: Still a patient Condition: Good
[2021-01-05] MEDS ORDERED: METHYLPREDNISOLONE SOD SUCC/PF 125 MG/2 ML VIAL IV ONE (03:55)
[2021-01-05 04:03] LABS: Hematocrit 54.4 % (37.0-47.0); Hemoglobin 18.1 gm/dL (12.5-16.0); Mean Cell Volume 89.2 fl (78-100); Mean Corpuscular Hemoglobin 29.7 pg (27-31); Mean Corpuscular Hgb Conc 33.3 g/dl (32-36); Mean Platelet Volume 10.4 fl (8-12.5); Platelet Count 204 K/mm3 (150-450); Red Cell Distribution Width 13.2 % (11.5-14.0)
[2021-01-05] MEDS ORDERED: cefTRIAXone SODIUM 1,000 MG/100 ML BAG IV ONE (04:07)
[2021-01-05 04:13] LABS: Total Cells Counted 100
[2021-01-05 04:59] LABS: ALT 15 U/L (19-67); AST 13 U/L (0-48); Albumin * 3.1 gm/dl (3.4-5.0); Alkaline Phosphatase * 75 U/L (50-170); Anion Gap 12.7 mmol/L (6.8-13.8); BNP * 82 pg/mL (5-550); BUN/Creatinine Ratio 20.4 (9.0-21.6); Bilirubin, Total 0.9 mg/dL (0.0-1.1); Blood Urea Nitrogen 20 mg/dL (3-23); Calcium * 8.6 mg/dL (7.9-10.9); Carbon Dioxide 26.1 mmol/L (24-32.6); Chloride 105 mmol/L (97-106); Glucose * 187 mg/dL (70-110); Potassium 3.8 mmol/L (3.4-4.6); Sodium 140 mmol/L (132-142); Total Protein 6.3 gm/dL (6.2-8.2); Troponin I Less than 0.017 ng/mL (0.00-0.10)
[2021-01-05] MEDS ORDERED: NORMAL SALINE 1,000 ML IV ONE ×2 (05:05→13:32)
[2021-01-05 05:07] LABS: Band 6 % (0-2.0); Eosinophil 1 % (0-3); Lymphocyte 2 % (20-51); Monocyte 1 % (0-9); Neutrophil 90 % (42-75); Neutrophil # 19.8 K/mm3 (1.3-6.0)
[2021-01-05 05:09] LABS: Ovalocytes Trace; Platelet Estimate Normal (NORMAL)
[2021-01-05] MEDS ORDERED: AZITHROMYCIN 250 MG TABLET PO ONE (07:11)
[2021-01-05] MEDS: NORMAL SALINE 1,000 ML IV SCH ×2 (07:14→08:34)
--- NOTE | 2021-01-05 08:18 | HP ---
Chief Complaint - Chief Complaint Date of Service: 01/05/21 Time of Service: 08:10 Chief Complaint: shortness of breath History of Present Illness: Patient with PMHx of COPD presented to the ED after a few hours of SOB and shaking chills. Denies chest pain, swelling, or edema. EMS reported spO2 in the low 80's and she required a non-rebreather. She had increased work of breathing initially here in the ED. Workup showed elevated WBC of 22.0, elevated neutrophils, D dimer of 2.01. ABGs showed normal pH at 7.38, but pO2 and pCO2 were both low. Lactate elevated at 3.0, and increased to 3.4 while in the ED. She was given 125 mg IV solumedrol, a dose of Rocephin and a dose of azithromycin, breathing treatments, and saline in the ED, with improvement in her respiratory status. CT chest showed " No evidence of a central PE. Multifocal opacities, concerning for multifocal pneumonia or pneumonitis superimposed upon underlying interstitial pulmonary edema. Recommend follow-up to resolution. Small right greater than left pleural effusions." She has been diagnosed with pneumonia and admitted for treatment. Medical History (Last Reviewed 01/05/21 @ 07:56 by Latisha Huynh RN) COVID-19 vaccine series completed (Acute) COVID-19 vaccine administered (Acute) Pelvic fullness in female (Acute) Atrophic vaginitis (Acute) Essential hypertension (Chronic) Onset Date: Unknown Hyperlipidemia (Chronic) Onset Date: Unknown GERD (gastroesophageal reflux disease) (Chronic) Onset Date: 12/01/13 COPD (chronic obstructive pulmonary disease) (Chronic) Onset Date: 04/08/17 Asthma (Chronic) Onset Date: Unknown Surgical History: Surgical History (Last Reviewed 01/05/21 @ 03:46 by Zulema Velasco RN) History of colonoscopy Onset Date: 12/14/14 02/19/06 Tinguely-normal. 12/14/14 Tinguely-tubular adenoma, scattered diverticulosis. Recheck 5 yrs. History of foot surgery Onset Date: 03/23/13 left ankle fx History of local excision of skin lesion Onset Date: 09/23/14 right anterior upper let-seborrheic keratosis. History of tonsillectomy Onset Date: Unknown History of total abdominal hysterectomy Onset Date: ~1974 Family History: Family History (Last Reviewed 01/05/21 @ 03:46 by Zulema Velasco RN) Mother , age 70's-natural causes No problems noted. Father , age 40's Drowned Sister , age 74 Colon cancer dx age 71 Social History: (Last Reviewed 01/05/21 @ 03:46 by Zulema Velasco RN) Social History: adopted: No halfway: No Marital status: / lives independently: Yes household members: none current occupational status: retired Highest level of school completed/degree received: high school graduate Sexually Active: No Tobacco: Smoking Status: Former smoker Alcohol: alcohol intake: current alcohol intake frequency: holiday/special occasion Substance Use: substance use type: does not use Dietary Habits: caffeine: Yes caffeine comment: [email or web address] Type: carbonated beverages Review Of Systems (GEN) - Review of Systems Generalized/Overall Review: Present: Chills, Fever Respiratory: Present: Shortness of Breath. Absent: Cough Cardiac: Absent: Chest Pain, Edema Abdominal: Present: No Symptoms Reported Genitourinary: Present: No Symptoms Reported Musculoskeletal: Present: No Symptoms Reported Immunizations: IMMUNIZATION HX Immunizations Up to Date unable to obtain Immunizations Comment Covid x2 History of Influenza Vaccine Yes Hx Pneumococcal Vaccination No Allergies/Adverse Reactions: Allergies Allergy/AdvReac Type Severity Reaction Status Date / Time No Known Drug Allergies Allergy Verified 01/05/21 03:46 Home Medications: HOME MEDICATIONS Albuterol Sulfate [Ventolin Hfa] 2 puff IH Q4H PRN 12/06/14 [Last Taken Unknown] Polyethylene Glycol 3350 1 tsp PO DAILY PRN 03/15/18 [Last Taken Unknown] fluticasone 250 mcg-salmeterol 50 mcg/dose blistr powdr for inhalation 1 inh IH Q12H #60 ea 07/25/20 [Last Taken Unknown] amlodipine 5 mg tablet 5 mg PO DAILY #90 tab 09/27/20 [Last Taken Unknown] lisinopril 40 mg tablet 40 mg PO DAILY #90 tab 09/27/20 [Last Taken Unknown] Exam - Exam Vital Signs: Vital Signs - Last Taken Temp 36.9 C 01/05/21 07:24 Pulse 99 01/05/21 07:36 Resp 28 H 01/05/21 07:36 BP 122/65 01/05/21 07:36 Pulse Ox 96 01/05/21 07:36 Constitutional: Present: Alert, No distress, Other - sitting on side of bed, Elderly Respiratory: Present: normal breath sounds, no respiratory distress, other - currently wearing 4L O2 via NC. Absent: crackles, rhonchi, wheezing Cardiovascular/Chest: Present: regular rate, rhythm Abdomen: Present: soft, nontender Extremity: Absent: lower extremity edema Eye contact: Present: cooperative, good eye contact Diagnostic Studies: Abnormal Lab Results 01/05/21 01/05/21 01/05/21 Range/Units 03:53 03:53 04:30 WBC 22.0 H (4.0-10.5) K/mm3 RBC 6.10 H (4.2-5.4) M/mm3 Hgb 18.1 H (12.5-16.0) gm/dL Hct 54.4 H (37.0-47.0) % Neutrophils % (Manual) 90 H (42-75) % Band Neuts % (Manual) 6 H (0-2.0) % Lymphocytes % (Manual) 2 L (20-51) % Neutrophils # (Manual) 19.8 H (1.3-6.0) K/mm3 Lymphocytes # (Manual) 0.4 L (1.5-3.5) k/mm3 D-Dimer 2.01 H (0.19-0.49) ugFEU/mL pCO2 (32.0-45.0) mmHg pO2 (83.0-108.0) mmHg HCO3 (21.0-28.0) mmol/L Total CO2 (19.0-24.0) mmol/L Base Excess (-2.0-3.0) mmol/L Est GFR (Non-Af Amer) 58 L D (60-130) mL/min Random Glucose 187 H (70-110) mg/dL Lactic Acid, Venous (0.4-2.0) mmol/L ALT 15 L (19-67) U/L Albumin 3.1 L (3.4-5.0) gm/dl 01/05/21 01/05/21 01/05/21 Range/Units 04:30 04:38 06:30 WBC (4.0-10.5) K/mm3 RBC (4.2-5.4) M/mm3 Hgb (12.5-16.0) gm/dL Hct (37.0-47.0) % Neutrophils % (Manual) (42-75) % Band Neuts % (Manual) (0-2.0) % Lymphocytes % (Manual) (20-51) % Neutrophils # (Manual) (1.3-6.0) K/mm3 Lymphocytes # (Manual) (1.5-3.5) k/mm3 D-Dimer (0.19-0.49) ugFEU/mL pCO2 29.9 L (32.0-45.0) mmHg pO2 76.2 L (83.0-108.0) mmHg HCO3 17.2 L (21.0-28.0) mmol/L Total CO2 18.1 L (19.0-24.0) mmol/L Base Excess -6.2 L (-2.0-3.0) mmol/L Est GFR (Non-Af Amer) (60-130) mL/min Random Glucose (70-110) mg/dL Lactic Acid, Venous 3.0 H* 3.4 H* (0.4-2.0) mmol/L ALT (19-67) U/L Albumin (3.4-5.0) gm/dl Laboratory Results WBC 22.0 K/mm3 (4.0-10.5) H 01/05/21 03:53 RBC 6.10 M/mm3 (4.2-5.4) H 01/05/21 03:53 Hgb 18.1 gm/dL (12.5-16.0) H 01/05/21 03:53 Hct 54.4 % (37.0-47.0) H 01/05/21 03:53 MCV 89.2 fl (78-100) 01/05/21 03:53 MCH 29.7 pg (27-31) 01/05/21 03:53 MCHC 33.3 g/dl (32-36) 01/05/21 03:53 RDW 13.2 % (11.5-14.0) 01/05/21 03:53 Plt Count 204 K/mm3 (150-450) 01/05/21 03:53 MPV 10.4 fl (8-12.5) 01/05/21 03:53 Neutrophils % (Manual) 90 % (42-75) H 01/05/21 03:53 Band Neuts % (Manual) 6 % (0-2.0) H 01/05/21 03:53 Lymphocytes % (Manual) 2 % (20-51) L 01/05/21 03:53 Monocytes % (Manual) 1 % (0-9) 01/05/21 03:53 Eosinophils % (Manual) 1 % (0-3) 01/05/21 03:53 Neutrophils # (Manual) 19.8 K/mm3 (1.3-6.0) H 01/05/21 03:53 Lymphocytes # (Manual) 0.4 k/mm3 (1.5-3.5) L 01/05/21 03:53 Monocytes # (Manual) 0.2 k/mm3 (0.0-1.0) 01/05/21 03:53 Eosinophils # (Manual) 0.2 k/mm3 (0.0-0.7) 01/05/21 03:53 Platelet Estimate Normal (NORMAL) 01/05/21 03:53 Ovalocytes Trace 01/05/21 03:53 D-Dimer 2.01 ugFEU/mL (0.19-0.49) H 01/05/21 03:53 pCO2 29.9 mmHg (32.0-45.0) L 01/05/21 04:38 pO2 76.2 mmHg (83.0-108.0) L 01/05/21 04:38 HCO3 17.2 mmol/L (21.0-28.0) L 01/05/21 04:38 Total CO2 18.1 mmol/L (19.0-24.0) L 01/05/21 04:38 Base Excess -6.2 mmol/L (-2.0-3.0) L 01/05/21 04:38 ABG pH 7.38 (7.35-7.45) 01/05/21 04:38 ABG O2 Sat (Measured) 95.2 % (94.0-98.0) 01/05/21 04:38 Sodium 140 mmol/L (132-142) 01/05/21 04:30 Plasma Sodium 141 mmol/L (130-142) 01/05/21 04:30 Potassium 3.8 mmol/L (3.4-4.6) 01/05/21 04:30 Chloride 105 mmol/L (97-106) 01/05/21 04:30 Carbon Dioxide 26.1 mmol/L (24-32.6) 01/05/21 04:30 Anion Gap 12.7 mmol/L (6.8-13.8) 01/05/21 04:30 BUN 20 mg/dL (3-23) 01/05/21 04:30 Creatinine 0.98 mg/dL (0.4-1.4) 01/05/21 04:30 Est GFR (Non-Af Amer) 58 mL/min (60-130) L D 01/05/21 04:30 BUN/Creatinine Ratio 20.4 (9.0-21.6) 01/05/21 04:30 Random Glucose 187 mg/dL (70-110) H 01/05/21 04:30 Lactic Acid, Venous 3.4 mmol/L (0.4-2.0) H* 01/05/21 06:30 Calcium 8.6 mg/dL (7.9-10.9) 01/05/21 04:30 Calcium Adj for Albumin 9.0 mg/dL (8.4-10.2) 01/05/21 04:30 Total Bilirubin 0.9 mg/dL (0.0-1.1) 01/05/21 04:30 AST 13 U/L (0-48) 01/05/21 04:30 ALT 15 U/L (19-67) L 01/05/21 04:30 Alkaline Phosphatase 75 U/L (50-170) 01/05/21 04:30 Troponin I Less than 0.017 ng/mL (0.00-0.10) 01/05/21 04:30 B-Natriuretic Peptide 82 pg/mL (5-550) 01/05/21 04:30 Total Protein 6.3 gm/dL (6.2-8.2) 01/05/21 04:30 Albumin 3.1 gm/dl (3.4-5.0) L 01/05/21 04:30 SARS-CoV-2 (PCR) Not detected (NotDetected) 01/05/21 03:36 Assessment/Plan - Narrative Narrative: With her describing chills, shortness of breath, and increased oxygen requirement, she clinically has pneumonia. At times, her qSOFA score is 2 for RR greater than 22 and systolic BP less than 100, which is high risk for sepsis. Patients can meet SIRS criteria for multiple reasons other than infection, but with her RR rate, WBC of 22, source of infection, and lactate of 3.0, she meets severe sepsis criteria. She was given Rocephin and a fluid bolus, and clinically is improving. CT chest also supports diagnosis of pneumonia. Her respiratory rate is improving, and she is not in distress for my exam. Repeat lactate pending. Will continue rocephin, azithromycin, 60 mg IV solumedrol, and breathing treatments. Anticipate hospitalization of greater than 2 midnights, given her severe presentation early this morning. - Assessment/Plan (1) Sepsis due to pneumonia Problem: Acute (2) Pneumonia Problem: Acute Qualifiers: Pneumonia type: due to unspecified organism Laterality: bilateral Lung location: unspecified part of lung Qualified Code(s): J18.9 - Pneumonia, unspecified organism (3) Elevated lactic acid level Problem: Acute (4) Essential hypertension Problem: Chronic (5) COPD (chronic obstructive pulmonary disease) Problem: Chronic (6) Hypertension Problem: Chronic Qualifiers: Hypertension type: essential hypertension Qualified Code(s): I10 - Essential (primary) hypertension (7) GERD (gastroesophageal reflux disease) Problem: Chronic Qualifiers: Esophagitis presence: without esophagitis Qualified Code(s): K21.9 - Gastro-esophageal reflux disease without esophagitis
[2021-01-05] MEDS ORDERED: POLYETHYLENE GLYCOL 3350 17 GM PACKET PO PRN (10:23)
[2021-01-05] MEDS ORDERED: ALBUTEROL SULFATE 2.5 MG/3 ML VIAL.NEB IH PRN (10:23)
[2021-01-05] MEDS ORDERED: ALBUTEROL SULFATE/IPRATROPIUM 3 ML NEBU IH PRN (10:24)
[2021-01-05 13:43] LABS: Hematocrit 48.3 % (37.0-47.0); Hemoglobin 15.6 gm/dL (12.5-16.0); Mean Cell Volume 90.8 fl (78-100); Mean Corpuscular Hemoglobin 29.3 pg (27-31); Mean Corpuscular Hgb Conc 32.3 g/dl (32-36); Mean Platelet Volume 11.2 fl (8-12.5); Platelet Count 213 K/mm3 (150-450); Red Blood Count 5.32 M/mm3 (4.2-5.4); Red Cell Distribution Width 13.4 % (11.5-14.0); White Blood Count 20.8 K/mm3 (4.0-10.5)
[2021-01-05 13:55] LABS: Total Cells Counted 100
[2021-01-05 15:11] LABS: Band 7 % (0-2.0); Lymphocyte 2 % (20-51); Neutrophil 91 % (42-75); Neutrophil # 18.9 K/mm3 (1.3-6.0)
[2021-01-05 15:12] LABS: Platelet Estimate Normal (NORMAL); RBC Morphology Normal (NORMAL)
[2021-01-05] MEDS: METHYLPREDNISOLONE SOD SUCC/PF 125 MG/2 ML VIAL IV SCH (16:19)
[2021-01-06] MEDS: METHYLPREDNISOLONE SOD SUCC/PF 125 MG/2 ML VIAL IV SCH (04:59)
[2021-01-06 07:09] LABS: Hematocrit 42.6 % (37.0-47.0); Hemoglobin 13.9 gm/dL (12.5-16.0); Mean Cell Volume 89.9 fl (78-100); Mean Corpuscular Hemoglobin 29.3 pg (27-31); Mean Corpuscular Hgb Conc 32.6 g/dl (32-36); Mean Platelet Volume 10.9 fl (8-12.5); Neutrophil # 20.6 K/mm3 (1.3-6.0); Neutrophil % 92.8 % (42-75.0); Platelet Count 195 K/mm3 (150-450); Red Blood Count 4.74 M/mm3 (4.2-5.4); Red Cell Distribution Width 13.6 % (11.5-14.0); White Blood Count 22.3 K/mm3 (4.0-10.5)
[2021-01-06 07:25] LABS: Total Cells Counted 100
[2021-01-06 07:44] LABS: Band 3 % (0-2.0); Lymphocyte 3 % (20-51); Monocyte 1 % (0-9); Neutrophil 93 % (42-75); Neutrophil # 20.7 K/mm3 (1.3-6.0); Platelet Estimate Normal (NORMAL); RBC Morphology Normal (NORMAL)
--- NOTE | 2021-01-06 08:24 | PN ---
Subjective - Date and Time Seen Date: 01/06/21 Time: 08:15 Subjective Narrative: Her shortness of breath is improving. She's able to ambulate more easily, and can take deeper breaths. Objective - Review of Systems Generalized/Overall Review: Denies: Fever Respiratory: Reports: Shortness of Breath. Denies: Cough, Wheezing Cardiac: Denies: Chest Pain, Edema Abdominal: Reports: No Symptoms Reported Genitourinary Symptoms: Reports: No Symptoms Reported Musculoskeletal Complaints: Reports: No Symptoms Reported - Vitals Vitals: Last Vital Signs Temp 37.0 C 01/06/21 07:16 Pulse 84 01/06/21 07:16 Resp 20 01/06/21 07:16 BP 182/67 H 01/06/21 07:16 Pulse Ox 96 01/06/21 07:16 - Abnormal Lab Findings Abnormal Lab Findings: Abnormal Lab Results 01/05/21 01/05/21 01/05/21 Range/Units 13:05 13:05 19:21 WBC 20.8 H (4.0-10.5) K/mm3 Hct 48.3 H (37.0-47.0) % Immature Gran # (Auto) (0.000-0.0310) K/mm3 Neutrophils % (42-75.0) % Neutrophils % (Manual) 91 H (42-75) % Band Neuts % (Manual) 7 H (0-2.0) % Lymphocytes % (20-51) % Lymphocytes % (Manual) 2 L (20-51) % Neutrophils # (1.3-6.0) K/mm3 Neutrophils # (Manual) 18.9 H (1.3-6.0) K/mm3 Lymphocytes # (1.5-3.5) k/mm3 Lymphocytes # (Manual) 0.4 L (1.5-3.5) k/mm3 Lactic Acid, Venous 5.3 H* 3.0 H* (0.4-2.0) mmol/L 01/06/21 Range/Units 07:00 WBC 22.3 H (4.0-10.5) K/mm3 Hct (37.0-47.0) % Immature Gran # (Auto) 0.09 H (0.000-0.0310) K/mm3 Neutrophils % 92.8 H (42-75.0) % Neutrophils % (Manual) 93 H (42-75) % Band Neuts % (Manual) 3 H (0-2.0) % Lymphocytes % 4.4 L (20-51) % Lymphocytes % (Manual) 3 L (20-51) % Neutrophils # 20.6 H (1.3-6.0) K/mm3 Neutrophils # (Manual) 20.7 H (1.3-6.0) K/mm3 Lymphocytes # 0.99 L (1.5-3.5) k/mm3 Lymphocytes # (Manual) 0.7 L (1.5-3.5) k/mm3 Lactic Acid, Venous (0.4-2.0) mmol/L - Exam Constitutional: Present: Alert, Cooperative, No distress, Elderly Respiratory: Present: lungs clear, normal breath sounds, other - using 4L via NC. speaks in short sentences. Absent: crackles, rhonchi, wheezing Abdomen: Present: Normal bowel sounds Extremity: Absent: lower extremity edema Eye contact: Present: cooperative, good eye contact Assessment/Plan Plan Narrative: She is clinically improving. She can walk without getting as short of breath, and can take deeper breaths. Her work of breathing is still increased from her baseline, however. She can only speak in short sentences. WBC went from 22 to 20 to 23. Since she's improving, will not change antibiotics yet, and will recheck CBC later this afternoon. If WBC elevates, will change antibiotic to levaquin. Will change from IV solumedrol to po prednisone. Lactate resolved. Wean oxygen as tolerated. She does not use oxygen at home. She has not needed a breathing treatment since yesterday morning in the ED. Her BP is elevated, and home amlodipine and lisinopril have been restarted. Anticipate at least one additional midnight stay for this hospitalization. - Problems/Diagnosis (1) Pneumonia Problem: Acute Qualifiers: Pneumonia type: due to unspecified organism Laterality: bilateral Lung location: unspecified part of lung Qualified Code(s): J18.9 - Pneumonia, unspecified organism (2) Sepsis due to pneumonia Problem: Resolved (3) Elevated lactic acid level Problem: Resolved (4) Essential hypertension Problem: Chronic (5) COPD (chronic obstructive pulmonary disease) Problem: Chronic (6) Hypertension Problem: Chronic Qualifiers: Hypertension type: essential hypertension Qualified Code(s): I10 - Essential (primary) hypertension (7) GERD (gastroesophageal reflux disease) Problem: Chronic Qualifiers: Esophagitis presence: without esophagitis Qualified Code(s): K21.9 - Gastro-esophageal reflux disease without esophagitis
[2021-01-06] MEDS: amLODIPine BESYLATE 5 MG TABLET PO SCH (09:15)
[2021-01-06] MEDS: LISINOPRIL 40 MG TABLET PO SCH (09:15)
[2021-01-06] MEDS: AZITHROMYCIN 250 MG TABLET PO SCH (09:15)
[2021-01-06] MEDS ORDERED: ACETAMINOPHEN 325 MG TABLET PO PRN (13:25)
[2021-01-06 17:04] LABS: Hematocrit 39.7 % (37.0-47.0); Mean Cell Volume 90.2 fl (78-100); Mean Corpuscular Hemoglobin 29.5 pg (27-31); Mean Corpuscular Hgb Conc 32.7 g/dl (32-36); Mean Platelet Volume 10.9 fl (8-12.5); Platelet Count 189 K/mm3 (150-450); Red Cell Distribution Width 13.5 % (11.5-14.0); White Blood Count 21.6 K/mm3 (4.0-10.5)
[2021-01-06 17:11] LABS: Total Cells Counted 100
[2021-01-06 17:29] LABS: Band 2 % (0-2.0); Lymphocyte 3 % (20-51); Monocyte 3 % (0-9); Neutrophil 92 % (42-75); Neutrophil # 19.9 K/mm3 (1.3-6.0)
[2021-01-06 17:30] LABS: Platelet Estimate Normal (NORMAL); RBC Morphology Normal (NORMAL)
[2021-01-07] MEDS ORDERED: LEVOFLOXACIN IN DEXTROSE 5 % 750 MG/150 ML BAG IV SCH (05:00)
[2021-01-07 06:32] LABS: Hematocrit 41.5 % (37.0-47.0); Hemoglobin 13.5 gm/dL (12.5-16.0); Mean Cell Volume 91.8 fl (78-100); Mean Corpuscular Hemoglobin 29.9 pg (27-31); Mean Corpuscular Hgb Conc 32.5 g/dl (32-36); Mean Platelet Volume 10.5 fl (8-12.5); Neutrophil # 15.3 K/mm3 (1.3-6.0); Neutrophil % 81.8 % (42-75.0); Platelet Count 193 K/mm3 (150-450); Red Blood Count 4.52 M/mm3 (4.2-5.4); Red Cell Distribution Width 13.6 % (11.5-14.0); White Blood Count 18.7 K/mm3 (4.0-10.5)
[2021-01-07] MEDS ORDERED: predniSONE 20 MG TABLET PO ONE (07:00)
[2021-01-07] MEDS: AZITHROMYCIN 250 MG TABLET PO SCH (08:50)
[2021-01-07] MEDS: LISINOPRIL 40 MG TABLET PO SCH (08:50)
[2021-01-07] MEDS: amLODIPine BESYLATE 5 MG TABLET PO SCH (08:50)
--- NOTE | 2021-01-07 11:12 | DS ---
Date of Discharge:: 01/07/21 Hospital Course: 80-year-old female admitted for sepsis secondary to bronchopneumonia and COPD exacerbation was evaluated at bedside this morning was found to be afebrile and in no acute distress. Patient has shown significant clinical improvement since arriving at our facility. This morning she reports decreased difficulty breathing and resolution of wheezing or chest tightness. Auscultation of the patient's lungs were unremarkable, she is moving air without any issues. The patient is currently saturating adequately on room air and has not required any breathing treatments. Her IV antibiotics were changed yesterday afternoon by her admitting physician and labs this morning revealed significant improvement in her leukocytosis, WBCs are now trending down. The patient reports feeling much better and is requesting to go home. I am in agreement with this so we will discharge her home with additional days of p.o. antibiotics. She was instructed to follow-up with her PCP and 1 week and was provided with an order to get a follow-up CBC to reevaluate WBCs. She is not oxygen dependent and normally uses inhalers at home so was instructed to use her inhaler as needed. Procedures Performed: none Results and Findings: Pending Mircobiology Results 01/05/21 03:43 Blood Blood Culture - Preliminary NO GROWTH AFTER 48 HOURS 01/05/21 04:03 Blood Blood Culture - Preliminary NO GROWTH 24 HOURS Lab Pending Results 01/05/21 03:36: SARS-CoV-2 (PCR) Not detected 01/05/21 03:53: WBC 22.0 H, RBC 6.10 H, Hgb 18.1 H, Hct 54.4 H, MCV 89.2, MCH 29.7, MCHC 33.3, RDW 13.2, Plt Count 204, MPV 10.4, Neutrophils % (Manual) 90 H, Band Neuts % (Manual) 6 H, Lymphocytes % (Manual) 2 L, Monocytes % (Manual) 1, Eosinophils % (Manual) 1, Neutrophils # (Manual) 19.8 H, Lymphocytes # (Manual) 0.4 L, Monocytes # (Manual) 0.2, Eosinophils # (Manual) 0.2, Platelet Estimate Normal, Ovalocytes Trace 01/05/21 03:53: D-Dimer 2.01 H 01/05/21 04:30: Sodium 140, Plasma Sodium 141, Potassium 3.8, Chloride 105, Carbon Dioxide 26.1, Anion Gap 12.7, BUN 20, Creatinine 0.98, Est GFR (Non-Af Amer) 58 L D, BUN/Creatinine Ratio 20.4, Random Glucose 187 H, Calcium 8.6, Calcium Adj for Albumin 9.0, Total Bilirubin 0.9, AST 13, ALT 15 L, Alkaline Phosphatase 75, Troponin I Less than 0.017, B-Natriuretic Peptide 82, Total Protein 6.3, Albumin 3.1 L 01/05/21 04:30: Lactic Acid, Venous 3.0 H* 01/05/21 04:38: pCO2 29.9 L, pO2 76.2 L, HCO3 17.2 L, Total CO2 18.1 L, Base Excess -6.2 L, ABG pH 7.38, ABG O2 Sat (Measured) 95.2 01/05/21 06:30: Lactic Acid, Venous 3.4 H* 01/05/21 13:05: Lactic Acid, Venous 5.3 H* 01/05/21 13:05: WBC 20.8 H, RBC 5.32, Hgb 15.6, Hct 48.3 H, MCV 90.8, MCH 29.3, MCHC 32.3, RDW 13.4, Plt Count 213, MPV 11.2, Neutrophils % (Manual) 91 H, Band Neuts % (Manual) 7 H, Lymphocytes % (Manual) 2 L, Neutrophils # (Manual) 18.9 H, Lymphocytes # (Manual) 0.4 L, Platelet Estimate Normal, RBC Morphology Normal 01/05/21 19:21: Lactic Acid, Venous 3.0 H* 01/06/21 07:00: WBC 22.3 H, RBC 4.74, Hgb 13.9, Hct 42.6, MCV 89.9, MCH 29.3, MCHC 32.6, RDW 13.6, Plt Count 195, MPV 10.9, Immature Gran % (Auto) 0.40, Immature Gran # (Auto) 0.09 H, Neutrophils % 92.8 H, Neutrophils % (Manual) 93 H, Band Neuts % (Manual) 3 H, Lymphocytes % 4.4 L, Lymphocytes % (Manual) 3 L, Monocytes % 2.3, Monocytes % (Manual) 1, Eosinophils % 0.0, Basophils % 0.1, Nucleated RBC % 0.0, Neutrophils # 20.6 H, Neutrophils # (Manual) 20.7 H, Lymphocytes # 0.99 L, Lymphocytes # (Manual) 0.7 L, Monocytes # 0.5, Monocytes # (Manual) 0.2, Eosinophils # 0.0, Absolute Basophils 0.0, Platelet Estimate Normal, RBC Morphology Normal 01/06/21 07:33: Lactic Acid, Venous 2.0 01/06/21 16:58: WBC 21.6 H, RBC 4.40, Hgb 13.0, Hct 39.7, MCV 90.2, MCH 29.5, MCHC 32.7, RDW 13.5, Plt Count 189, MPV 10.9, Neutrophils % (Manual) 92 H, Band Neuts % (Manual) 2, Lymphocytes % (Manual) 3 L, Monocytes % (Manual) 3, Neutrophils # (Manual) 19.9 H, Lymphocytes # (Manual) 0.6 L, Monocytes # (Manual) 0.6, Platelet Estimate Normal, RBC Morphology Normal 01/07/21 06:25: WBC 18.7 H, RBC 4.52, Hgb 13.5, Hct 41.5, MCV 91.8, MCH 29.9, MCHC 32.5, RDW 13.6, Plt Count 193, MPV 10.5, Immature Gran % (Auto) 0.50 H, Immature Gran # (Auto) 0.09 H, Neutrophils % 81.8 H, Lymphocytes % 9.2 L, Monocytes % 6.2, Eosinophils % 2.2, Basophils % 0.1, Nucleated RBC % 0.0, Neutrophils # 15.3 H, Lymphocytes # 1.73, Monocytes # 1.2 H, Eosinophils # 0.4, Absolute Basophils 0.0 Discharge Location: Home Disposition: Home self-care Condition: Good Face to Face Encounter completed per CMS Guidelines: No Discharge Activity: Activity as tolerated Discharge Diet: General/regular food Referrals: Abigail Ford DO [Primary Care Provider] - Prescriptions (Any new or edited meds): Levofloxacin [Levaquin] 750 mg PO DAILY #3 tab Transmission Status: Pending to [place], [place] Complete Home Medications List: Complete Home Medication List: Albuterol Sulfate [Ventolin Hfa] 2 puff IH Q4H PRN 12/06/14 Polyethylene Glycol 3350 1 tsp PO DAILY PRN 03/15/18 fluticasone 250 mcg-salmeterol 50 mcg/dose blistr powdr for inhalation 1 inh IH Q12H #60 ea 07/25/20 amlodipine 5 mg tablet 5 mg PO DAILY #90 tab 09/27/20 lisinopril 40 mg tablet 40 mg PO DAILY #90 tab 09/27/20 Levofloxacin [Levaquin] 750 mg PO DAILY 4 Days #4 tab 01/07/21 Forms: Patient Portal Registration
[2021-01-07 13:29] VITALS: BP 159/63
== END 2021-01-07 13:10 | disposition home or self-care (01) | DRG 871 ==
LOC: ER 03:15 → MS 07:23
PROVIDERS: ADMIT Family Medicine; ATTEND Family Medicine